=== PATIENT | male | born 1970 | race Two or more races ===

== ENCOUNTER 2020-02-09 06:00 | Day surgery (SDC) | payer OTHER ==
[~2020-02-09 06:00] MED LIST: CRESTOR10 MG PO; [UNRECOGNIZED DRUG - OTHER] PO
== END 2020-02-09 10:10 | disposition home or self-care (01) ==
LOC: CIR.AMB 06:00
PROVIDERS: ATTEND Orthopaedic Surgery Hand Surgery
DX: R22.31 Localized swelling, mass and lump, right upper limb (principal)